=== PATIENT | female | born 1940 | race Caucasian/White ===

== ENCOUNTER 2019-04-17 10:28 | Outpatient (CLI) | payer MEDICARE, SELFPAY ==
--- NOTE | 2019-04-17 10:35 | XR_ITS ---
WS: [id number] CHEST 2 VIEWS HISTORY: Pleural EFFUSION ASSOCIATED W/HEPATIC DISORDER COMPARISON: CT chest 04/04/2019 Lungs: Large RIGHT pleural effusion with compressive atelectasis of the mid and lower RIGHT lung. Jamison y similar to the prior CT evaluation. There is biapical pleural thickening and scarring noted bilater ally. Cardiac size: Partially obscured by the large RIGHT pleural effusion. At least mildly enlarged. Mediastinum/Aorta: Normal mediastinum. Bones: Normal. XR/XR chest 2V* [id number] IMPRESSION: 1. Large RIGHT pleural effusion, similar to the prior effusion described on without improvement. 2. Compressive atelectasis involving at least 50% of the RIGHT lung. 3. Chronic emphysema.
== END 2019-04-17 10:29 | disposition home or self-care (01) ==
LOC: RAD 10:30
PROVIDERS: Family Provider Registered Nurse; PCP Registered Nurse; Visit Provider Registered Nurse
DX: J91.8 Pleural effusion in other conditions classified elsewhere (principal); J43.9 Emphysema, unspecified
CPT/HCPCS: 71046

== ENCOUNTER 2019-05-01 12:18 | Outpatient (CLI) | payer MEDICARE, SELFPAY ==
[2019-05-01 14:02] LABS: Alanine Aminotransferase 21 U/L (0-33); Albumin Level 2.5 g/dL (3.5-5.2); Alkaline Phosphatase 88 IU/L (35-105); Anion Gap 17.3 (5-19); Blood Urea Nitrogen 29 mg/dL (8-23); Calcium 9.8 mg/Dl (8.8-10.2); Carbon Dioxide 22 mmol/L (22-29); Chloride 97 mmol/L (98-107); Globulin 3.8 g/dL (1.3-4.6); Glucose 117 mg/dL (74-106); Potassium 4.3 mmol/L (3.5-5.1); Sodium 132 mmol/L (136-145); Total Protein 6.3 g/dL (6.6-8.7)
[2019-05-01 15:37] LABS: Aspartate Amino Transferase 36 U/L (0-32)
== END 2019-05-01 12:19 | disposition home or self-care (01) ==
LOC: LAB 12:23
PROVIDERS: Family Provider Registered Nurse; PCP Registered Nurse
DX: R18.8 Other ascites (principal)
CPT/HCPCS: 80053